=== PATIENT | male | born 2000 | race Two or more races ===

== ENCOUNTER 2020-01-07 17:49 | Outpatient (REF) | payer OTHER, SELFPAY | END 2020-01-07 17:50 | disposition home or self-care (01) | LOC: HO.LAB 17:49 | PROVIDERS: Visit Provider Internal Medicine | DX: Z20.828 Contact with and (suspected) exposure to other viral communicable diseases (principal) | CPT/HCPCS: C9803; U0003 ==

== ENCOUNTER 2020-04-13 12:11 | Outpatient (REF) | payer OTHER, SELFPAY | END 2020-04-13 12:12 | disposition home or self-care (01) | LOC: HO.LAB 12:11 | PROVIDERS: Visit Provider Internal Medicine | DX: Z20.822 Contact with and (suspected) exposure to COVID-19 (principal) | CPT/HCPCS: 36415; C9803; U0003; U0005 ==

== ENCOUNTER 2022-04-28 11:30 | Outpatient (REF) | payer SELFPAY ==
--- NOTE | ~2022-04-28 | XR_ITS ---
EXAMINATION: XR SHOULDER, LEFT CLINICAL INFORMATION: Pain left shoulder COMPARISON: None TECHNIQUE: The left shoulder is imaged in 4 views. FINDINGS: There is no fracture, dislocation, destructive process. No arthropathy. The glenohumeral joint is normal. There are no visible rotator cuff calcifications. The distal left clavicle is borderline elevated without acromioclavicular joint widening. This may be related to congenital variation. Recommend correlation with clinical history and exam to exclude prior AC sprain. XR/XR shoulder LT min 2V IMPRESSION: -No fracture, dislocation, destructive process. -Borderline elevated distal left clavicle. -No visible rotator cuff calcifications.
== END 2022-04-28 11:31 | disposition home or self-care (01) ==
LOC: HO.XRAY 11:30
PROVIDERS: Visit Provider Registered Nurse
DX: M25.512 Pain in left shoulder (principal)
CPT/HCPCS: 73030